=== PATIENT | male | born 1930 | race Caucasian/White ===

== ENCOUNTER 2018-06-23 10:35 | Emergency (ER) | payer SELFPAY ==
[2018-06-23] MEDS ORDERED: DIPH,PERTUS(ACELL)TETVAC-LF 0.5 ML VIAL IM ONE (11:04)
[2018-06-23] MEDS ORDERED: cefTRIAXone IN SWFI 1,000 MG/10 ML SYRINGE IVP STA (11:12)
--- NOTE | 2018-06-23 11:12 | ED ---
General Adult HPI - General Stated complaint: Fall, head laceration Time Seen by Provider: 06/23/18 10:35 Source: RN notes reviewed - History of Present Illness Initial comments: This is an 87-year-old male who was out shopping with his when he was starting to walk from one store the other in the next he knows he woke up on the ground. Patient states she does not remember any prodrome to the event. Patient states currently he only has a little pain on the right elbow region where he hit and has a large hematoma. Patient denies any headache patient denies neck pain patient denies any numbness or weakness. Patient has any chest pain palpitations difficulty breathing shortness of breath. Patient states she was not feeling ill prior to the event. Patient denied any recent vomiting or diarrhea. Recent states she is able to move all 4 fomites has no visual complaints and he is speech is normal according to his . - Related Data Home Medications Medication Instructions Recorded Confirmed No Known Home Medications 06/23/18 06/23/18 Allergies Allergy/AdvReac Type Severity Reaction Status Date / Time No Known Allergies Allergy Unverified 06/23/18 10:56 Review of Systems ROS Statement: Those systems with pertinent positive or pertinent negative responses have been documented in the HPI. ROS Other: All systems not noted in ROS Statement are negative. General Exam - General Exam Comments Initial Comments: GENERAL: Patient is well-developed and well-nourished. Patient is nontoxic and well-hyd rated and is in no acute distress. ENT: Neck is soft and supple. No significant lymphadenopathy is noted. Oropharynx is clear. Moist mucous membranes. Neck has full range of motion without elicit ing any pain. Patient has some tenderness to the temporal region with a hematoma exists. EYES: The sclera were anicteric and conjunctiva were pink and moist. Extraocular movements were intact and pupils were equal round and reactive to light. Eyelids were unremarkable. PULMONARY: Unlabored respirations. Good breath sounds bilaterally. No audible rales rhonchi or wheezing was noted. CARDIOVASCULAR: There is a regular rate and rhythm without any murmurs gallops or rubs. Femoral pulses are equal bilaterally ABDOMEN: Soft and nontender with normal bowel sounds. No palpable organomegaly was noted. There is no palpable pulsatile mass. SKIN: Patient has a skin tear on the dorsal surface of the right hand that is measuring about 6 x 5 cm. Patient has a small skin tear to the left elbow patient has another small skin tear to the temporal region of his head . Patient has a large hematoma on temporal area on the right side of his head NEUROLOGIC: Patient is alert and oriented x3. Cranial nerves II through XII are grossly intact. Motor and sensory are also intact. Normal speech, volume and content. Symmetrical smile. MUSCULOSKELETAL: Normal extremities with adequate strength and full range of motion. No lower extremity swelling or edema. No calf tenderness. LYMPHATICS: No significant lymphadenopathy is noted PSYCHIATRIC: Normal psychiatric evaluation. Course Vital Signs 06/23/18 06/23/18 06/23/18 11:04 12:15 13:00 Temperature 97.8 F Pulse Rate 69 87 86 Respiratory 18 20 20 Rate Blood Pressure 191/112 152/77 164/78 O2 Sat by Pulse 97 99 100 Oximetry Medical Decision Making - Medical Decision Making EKG shows normal sinus rhythm at 71 bpm [place] interval 148 QRSs 106 QT interval 44 QTC is 439. Patient's EKG shows no ST segment elevation or depression or T wave abnormalities are noted Patient's CT of the C-spine showed no acute abnormality. CT of the facial bones showed no acute normalities. CT of the brain showed a measuring 6.5 mm of a subdural hematoma in the parietal region. Patient's chest x-ray showed no acute abnormality. Patient wanted to go to Thursday when I called started they would not accept the patient has had no neurosurgery. I told the patient he would have to go to the [facility] because he is tender and he would not take and was because he has no insurance so he left AMA and will have his drive him there. Patient had 5 areas of skin tears. I repaired the left elbow skin tear with Dermabond. I repaired the 2 small skin tears on the right temporal region of his skull with Dermabond. I repaired the right wrist skin tear with Dermabond. I also partially repaired the dorsal aspect of the right hand with Dermabond the rest was avulsed and was just covered with wet-to-dry's. I did speak with the physician at [facility] and [facility] and he agreed the patient should take an ambulance but is willing to take the patient if he shows up. - Lab Data Result diagrams: 06/23/18 10:55 06/23/18 10:55 Lab Results 0306/23/18 06/23/18 Range/Units 10:55 10:55 10:55 WBC 4.9 (3.8-10.6) k/uL RBC 4.66 (4.30-5.90) m/uL Hgb 14.4 (13.0-17.5) gm/dL Hct 42.9 (39.0-53.0) % MCV 92.1 (80.0-100.0) fL MCH 30.9 (25.0-35.0) pg MCHC 33.6 (31.0-37.0) g/dL RDW 12.6 (11.5-15.5) % Plt Count 223 (150-450) k/uL Neutrophils % 64 % Lymphocytes % 24 % Monocytes % 8 % Eosinophils % 1 % Basophils % 0 % Neutrophils # 3.2 (1.3-7.7) k/uL Lymphocytes # 1.2 (1.0-4.8) k/uL Monocytes # 0.4 (0-1.0) k/uL Eosinophils # 0.1 (0-0.7) k/uL Basophils # 0.0 (0-0.2) k/uL PT 10.9 (9.0-12.0) sec INR 1.0 (<1.2) APTT 23.7 (22.0-30.0) sec Sodium 136 L (137-145) mmol/L Potassium 4.5 (3.5-5.1) mmol/L Chloride 99 (98-107) mmol/L Carbon Dioxide 26 (22-30) mmol/L Anion Gap 11 mmol/L BUN 15 (9-20) mg/dL Creatinine 0.79 (0.66-1.25) mg/dL Est GFR (CKD-EPI)AfAm >90 (>60 ml/min/1.73 sqM) Est GFR (CKD-EPI)NonAf 82 (>60 ml/min/1.73 sqM) Glucose 110 H (74-99) mg/dL Plasma Lactic Acid Nitin (0.7-2.0) mmol/L Calcium 9.4 (8.4-10.2) mg/dL Magnesium 1.7 (1.6-2.3) mg/dL Total Bilirubin 0.7 (0.2-1.3) mg/dL AST 25 (17-59) U/L ALT 32 (21-72) U/L Alkaline Phosphatase 79 (38-126) U/L Troponin I (0.000-0.034) ng/mL Total Protein 7.5 (6.3-8.2) g/dL Albumin 4.2 (3.5-5.0) g/dL 06/23/18 06/23/18 Range/Units 10:55 10:55 WBC (3.8-10.6) k/uL RBC (4.30-5.90) m/uL Hgb (13.0-17.5) gm/dL Hct (39.0-53.0) % MCV (80.0-100.0) fL MCH (25.0-35.0) pg MCHC (31.0-37.0) g/dL RDW (11.5-15.5) % Plt Count (150-450) k/uL Neutrophils % % Lymphocytes % % Monocytes % % Eosinophils % % Basophils % % Neutrophils # (1.3-7.7) k/uL Lymphocytes # (1.0-4.8) k/uL Monocytes # (0-1.0) k/uL Eosinophils # (0-0.7) k/uL Basophils # (0-0.2) k/uL PT (9.0-12.0) sec INR (<1.2) APTT (22.0-30.0) sec Sodium (137-145) mmol/L Potassium (3.5-5.1) mmol/L Chloride (98-107) mmol/L Carbon Dioxide (22-30) mmol/L Anion Gap mmol/L BUN (9-20) mg/dL Creatinine (0.66-1.25) mg/dL Est GFR (CKD-EPI)AfAm (>60 ml/min/1.73 sqM) Est GFR (CKD-EPI)NonAf (>60 ml/min/1.73 sqM) Glucose (74-99) mg/dL Plasma Lactic Acid Nitin 1.6 (0.7-2.0) mmol/L Calcium (8.4-10.2) mg/dL Magnesium (1.6-2.3) mg/dL Total Bilirubin (0.2-1.3) mg/dL AST (17-59) U/L ALT (21-72) U/L Alkaline Phosphatase (38-126) U/L Troponin I <0.012 (0.000-0.034) ng/mL Total Protein (6.3-8.2) g/dL Albumin (3.5-5.0) g/dL Critical Care Time Critical Care Time: Yes Total Critical Care Time: 35 Disposition Clinical Impression: Subdural hematoma, Syncope, Multiple skin tears Disposition: Left Against Medical Advice Referrals: Nonstaff,Physician [REFERRING] - 1-2 days Time of Disposition: 13:57
[2018-06-23] MEDS ORDERED: hydrALAZINE HCL 20 MG/ML 1 ML VIAL IVP STA ×2 (11:13→13:58)
[2018-06-23 11:24] LABS: Basophils % (A) 0 %; Eosinophils # (A) 0.1 k/uL (0-0.7); Eosinophils % (A) 1 %; HCT 42.9 % (39.0-53.0); HGB 14.4 gm/dL (13.0-17.5); Lymphocytes # (A) 1.2 k/uL (1.0-4.8); Lymphocytes % (A) 24 %; MCH 30.9 pg (25.0-35.0); MCHC 33.6 g/dL (31.0-37.0); MCV 92.1 fL (80.0-100.0); Mean Platelet Volume 6.8; Monocytes # (A) 0.4 k/uL (0-1.0); Monocytes % (A) 8 %; Neutrophils # (A) 3.2 k/uL (1.3-7.7); Neutrophils % (A) 64 %; Platelet Count 223 k/uL (150-450); RBC 4.66 m/uL (4.30-5.90); RDW 12.6 % (11.5-15.5); WBC 4.9 k/uL (3.8-10.6)
[2018-06-23 11:33] LABS: ALT 32 U/L (21-72); AST 25 U/L (17-59); Albumin 4.2 g/dL (3.5-5.0); Alkaline Phosphatase 79 U/L (38-126); Anion Gap 11 mmol/L; Blood Urea Nitrogen 15 mg/dL (9-20); Calcium 9.4 mg/dL (8.4-10.2); Carbon Dioxide 26 mmol/L (22-30); Chloride 99 mmol/L (98-107); Glucose 110 mg/dL (74-99); Magnesium 1.7 mg/dL (1.6-2.3); Potassium 4.5 mmol/L (3.5-5.1); Sodium 136 mmol/L (137-145); Total Bilirubin 0.7 mg/dL (0.2-1.3); Total Protein 7.5 g/dL (6.3-8.2)
[2018-06-23 11:50] LABS: Partial Thromboplastin Time 23.7 sec (22.0-30.0); Prothrombin Time 10.9 sec (9.0-12.0)
--- NOTE | 2018-06-23 12:34 | CT ---
EXAMINATION TYPE: CT brain lisa butt con DATE OF EXAM: 06/23/2018 COMPARISON: HISTORY: Fall CT DLP: 1068.[address] of the brain was performed. The ventricles, basal cisterns and sulci overlying the cerebral convexities demonstrate mild to moder ate enlargement. There is right-sided sliver subdural hematoma extending from the right frontal through the mid pariet al region with maximal thickness of 6.2 mm. No evidence for midline shift. No additional hemorrhage i dentified. Physiologic calcifications basal ganglia. There is decreased attenuation about the periventricular wh ite matter and deep white matter of both cerebral hemispheres, compatible with chronic small vessel i schemia. No mass effects are seen. If symptoms persist consider MRI. Osseous calvarium is intact. IMPRESSION: 1. There is right-sided sliver subdural hematoma extending from the right frontal through the mid pa rietal region with maximal thickness of 6.[address] Cervical Spine: Unenhanced CT of the cervical spine was performed with bone and soft tissue window settings submitted . Coronal and sagittal reconstruction is obtained. There is normal alignment and prevertebral soft tissues. No evidence for acute cervical fracture . Scattered degenerative disc disease and spondylosis. Biapical scarring. IMPRESSION: 1. No evidence for acute fracture or subluxation of the cervical spine.
--- NOTE | 2018-06-23 12:36 | CT ---
EXAMINATION TYPE: CT facial bones wo con DATE OF EXAM: 06/23/2018 COMPARISON: None HISTORY: Fall CT DLP: Images reconstructed mGycm Unenhanced CT of the facial bones was performed in the axial and coronal planes. Bone and soft tissu e window settings are submitted. Moderate soft tissue swelling noted about the right facial region and right periorbital region. I do not see evidence for displaced facial bone fracture or depressed facial bone fracture. The globes are intact. Paranasal sinuses are well-aerated. Right-sided subdural hematoma has been described on CT of the bra in from the same day. IMPRESSION: 1. No evidence for depressed or displaced facial bone fracture.
--- NOTE | 2018-06-23 13:46 | XR ---
EXAMINATION TYPE: XR chest 2V DATE OF EXAM: 06/23/2018 COMPARISON: NONE HISTORY: Fall injury today with chest pain TECHNIQUE: Frontal and lateral views of the chest are obtained. FINDINGS: There is chronic parenchymal change bilaterally without pleural effusion or pneumothorax s een. Reticulonodular opacities bilateral lower lungs lateral aspect of uncertain etiology favor paren chymal scarring. The cardiac silhouette size is within normal limits with atherosclerotic change in t he aortic knob. The osseous structures are somewhat demineralized. Multilevel spurring in thoracic spine is present. Overlying EKG leads are seen. IMPRESSION: No suspicious acute cardiopulmonary process.
[2018-06-23] MEDS ORDERED: TOPICAL SKIN ADHESIVE 1 EACH AMP TOPICAL ONE (14:22)
[2018-06-23 14:40] VITALS: BP 129/74; PULSE 90; RESP 19; TEMP 98.3
--- NOTE | 2018-06-24 02:15 | CDI ---
Dear Justus Maynard MD: Please do addendum length of the laceration repaired of head, wirst, and hand. Thank you, Rizwana Thomas, Ground Crew Supervisor. If you have any questions, please contact Merchandise Collector at [phone]. MTDD
== END 2018-06-23 14:35 | disposition left against medical advice (07) ==
LOC: EC 10:35
DX: S06.5X9A Traumatic subdural hemorrhage with loss of consciousness of unspecified duration, initial encounter (principal); S51.012A Laceration without foreign body of left elbow, initial encounter; S01.81XA Laceration without foreign body of other part of head, initial encounter; S61.511A Laceration without foreign body of right wrist, initial encounter; S61.411A Laceration without foreign body of right hand, initial encounter; S59.901A Unspecified injury of right elbow, initial encounter; Z23 Encounter for immunization; Z53.20 Procedure and treatment not carried out because of patient's decision for unspecified reasons; W19.XXXA Unspecified fall, initial encounter; Y93.01 Activity, walking, marching and hiking; Y92.89 Other specified places as the place of occurrence of the external cause
CPT/HCPCS: 99285; 12013; 12004; 96374; 96375; 96376; 90471; 36415; 93005; 80053; 83605; 83735; 84484; 85025; 85610; 85730; 71046; 72125; 70486; 70450; 90715; J0360; J0696